=== PATIENT | female | born 1945 | race African-American/Black ===

== ENCOUNTER → 2019-06-13 | Outpatient (CLI) | payer MEDICARE, OTHER ==
[2019-06-13 15:19] LABS: HEMATOCRIT 52 % (35-52); MEAN CORPUSCULAR HEMOGLOBIN 32 PG (25-34); MEAN CORPUSCULAR VOLUME 99 FL (80-99); WHITE BLOOD COUNT 7.9 10^3/uL (4.3-11.0)
[2019-06-13 15:20] LABS: BASOPHILS # (AUTO) 0.1 10^3/uL (0.0-0.1); BASOPHILS % (AUTO) 1 % (0-10); EOSINOPHILS # (AUTO) 0.2 10^3/uL (0.0-0.3); EOSINOPHILS % (AUTO) 2 % (0-10); LYMPHOCYTES # (AUTO) 1.9 X 10^3 (1.0-4.0); LYMPHOCYTES % (AUTO) 25 % (12-44); MEAN CORPUSCULAR HGB CONC 33 G/DL (32-36); MEAN PLATELET VOLUME 9.2 FL (7.4-10.4); MONOCYTES # (AUTO) 0.6 X 10^3 (0.0-1.0); MONOCYTES % (AUTO) 7 % (0-12); NEUTROPHILS # (AUTO) 5.2 X 10^3 (1.8-7.8); NEUTROPHILS % (AUTO) 66 % (42-75); PLATELET COUNT 319 10^3/uL (130-400); RED CELL DISTRIBUTION WIDTH 12.9 % (10.0-14.5)
[2019-06-13 15:59] LABS: BILIRUBIN,TOTAL 0.5 MG/DL (0.1-1.0); BUN/CREATININE RATIO 26; CARBON DIOXIDE 26 MMOL/L (21-32); CHLORIDE 97 MMOL/L (98-107); CREATININE SERUM 0.72 MG/DL (0.60-1.30); GFR ESTIMATED > 60; GLUCOSE 112 MG/DL (70-105); POTASSIUM 4.5 MMOL/L (3.6-5.0); SODIUM 136 MMOL/L (135-145)
[2019-06-13 16:00] LABS: ALANINE AMINOTRANSFERASE 10 U/L (0-55); ALBUMIN 4.4 GM/DL (3.2-4.5); ALKALINE PHOSPHATASE 101 U/L (40-136); AMYLASE 54 U/L (25-125); LIPASE 25 U/L (8-78); TOTAL PROTEIN 7.4 GM/DL (6.4-8.2)
== END ==
LOC: LAB FS 14:56
PROVIDERS: ATTEND Nurse Practitioner Family
DX: R10.84 Generalized abdominal pain (principal)
CPT/HCPCS: 36415; 80053; 82150; 83690; 85025

== ENCOUNTER → 2020-12-02 | Outpatient (CLI) | payer MEDICARE, OTHER ==
[~2020-12-02] MED LIST: CATHETER FLUSH 10 ML SYR IV PRN; HOLD METFORMIN - RECEIVED CONTRAST 20 ML VIAL IV SCH; IOHEXOL 350 MG/ML 100 ML (OMNIPAQUE 350) VIAL IV ONE; NS 100 ML (IVPB) BAG IV ONE
[2020-12-02 13:56] LABS: ALANINE AMINOTRANSFERASE 10 U/L (0-55); ALBUMIN 4.2 GM/DL (3.2-4.5); ALKALINE PHOSPHATASE 123 U/L (40-136); BILIRUBIN,TOTAL 0.3 MG/DL (0.1-1.0); BUN/CREATININE RATIO 21; CALCIUM 9.5 MG/DL (8.5-10.1); CARBON DIOXIDE 22 MMOL/L (21-32); CHLORIDE 104 MMOL/L (98-107); GFR ESTIMATED > 60; GLUCOSE 124 MG/DL (70-105); POTASSIUM 3.8 MMOL/L (3.6-5.0); SODIUM 138 MMOL/L (135-145); TOTAL PROTEIN 7.2 GM/DL (6.4-8.2)
--- NOTE | 2020-12-02 15:14 | Diagnostic Imaging Report ---
PROCEDURE: CT abdomen and pelvis without contrast. TECHNIQUE: Multiple contiguous axial images were obtained through the abdomen and pelvis without the use of intravenous contrast. Auto Exposure Controls were utilized during the CT exam to meet ALARA standards for radiation dose reduction. INDICATION: Intermittent abdominal pain. There are no prior studies available for comparison. This study is less than optimal due to motion and streak artifact. The liver does not appear to be enlarged and there is no focal mass involving the liver. The biliary tree does not appear to be abnormally distended either. The gallbladder is surgically absent. The spleen, pancreas, adrenals, kidneys, aorta and inferior vena cava show no sign of an acute abnormality. The stomach is not well-distended and consequently difficult to assess. The appendix is not well-visualized but there are no indirect signs of acute appendicitis. There is diverticulosis of the sigmoid and descending colon but there is no sign of acute diverticulitis. There is no pelvic mass or free fluid collection noted. The uterus is surgically absent. The urinary bladder is grossly unremarkable. There is a femoral-femoral bypass graft. The graft seems to be in good position but whether the graft is patent is not certain. If further study is desired, either a follow-up CT abdomen/pelvis exam with intravenous contrast or ultrasound would be recommended. The lung bases are generally clear. The bone windows show no sign of a fracture or of a destructive lesion. IMPRESSION: 1. There is no acute abnormality of the abdomen or pelvis identified on this suboptimal exam. 2. There is diverticulosis of the sigmoid and descending colon but there is no sign of acute diverticulitis. 3. The gallbladder and uterus are surgically absent. 4. There is a femoral-femoral bypass graft in place. Additional considerations as above. Dictated by: Dictated on workstation # [id number]
== END ==
LOC: RAD FS 13:12
PROVIDERS: ATTEND Surgery
DX: K57.30 Diverticulosis of large intestine without perforation or abscess without bleeding (principal); Z90.49 Acquired absence of other specified parts of digestive tract; Z90.710 Acquired absence of both cervix and uterus; Z95.828 Presence of other vascular implants and grafts
CPT/HCPCS: 36415; 74176; 80053

== ENCOUNTER → 2023-02-01 | Outpatient (CLI) | payer MEDICARE, OTHER ==
[~2023-02-01] VITALS: Ht 160 cm; Wt 56.4 kg
[~2023-02-01] MED LIST changes: +ALPR0.5T7 PO; +AMLO-250 PO; +ATOR10TA66 PO; -CATHETER FLUSH 10 ML SYR IV PRN; +DICY10CA12 PO; +ESTR1TAB24 PO; -HOLD METFORMIN - RECEIVED CONTRAST 20 ML VIAL IV SCH; -IOHEXOL 350 MG/ML 100 ML (OMNIPAQUE 350) VIAL IV ONE; -NS 100 ML (IVPB) BAG IV ONE; +OMEP40CA6 PO; +RIVA20TA PO; +RT-ALBUINH INH
== END | disposition home or self-care (01) ==
LOC: PREOP 13:01
PROVIDERS: ATTEND Surgery
DX: Z01.818 Encounter for other preprocedural examination (principal); R10.13 Epigastric pain; Z87.19 Personal history of other diseases of the digestive system

== ENCOUNTER 2023-02-07 11:03 | Day surgery (SDC) | payer MEDICARE, OTHER ==
[~2023-02-07] VITALS: Ht 160 cm; Wt 56.4 kg
[~2023-02-07 11:03] MED LIST changes: -OMEP40CA6 PO
--- NOTE | 2023-02-07 11:20 | Progress Note-Pre Operative ---
Pre-Operative Progress Note Date of Available H&P: Feb 07, 2023 Date H&P Reviewed: Feb 07, 2023 Time H&P Reviewed: 11:15 History & Physical: No changes noted Pre-Operative Diagnosis: GERD, hx diverticulitis GURU INGRAM MD Feb 07, 2023 11:20
[2023-02-07] MEDS ORDERED: OMEP40CA6 PO (11:21)
--- NOTE | 2023-02-07 11:22 | Discharge Inst-Surgical ---
D/C Lap Instructions-KIDO New, Converted, or Re-Newed RX: RX on Chart Follow Up Activity as tolerated High Fiber Diet 25g or more per day Avoid Alcohol, Caffeine, Spicy [place] and Acid foods. Drink 64 fluid oz or more of fluids per day. Symptoms to Report: Fever over 101 degree F, Nausea/Vomiting If any problems/questions: Contact your physician or go to Emergency Room GURU INGRAM MD Feb 07, 2023 11:22
[2023-02-07] MEDS ORDERED: LACTATED RINGERS 1,000 ML IV STA (11:23)
[2023-02-07] MEDS ORDERED: LIDOCAINE JELLY 2% 6 ML SYRINGE MM PRN (11:30)
[2023-02-07] MEDS ORDERED: ONDANSETRON 4 MG/2 ML (SDV) Z0FRAN IVP PRN (11:30)
[2023-02-07] MEDS ORDERED: ONDANSETRON 4 MG (ZOFRAN) ORAL DISSOLVE TAB PO PRN (11:30)
[2023-02-07] MEDS ORDERED: HURRICAINE EXT TUBE (BENZOCAINE) XX PRN (11:30)
[2023-02-07 11:54] VITALS: BP 147/78
[2023-02-07] MEDS ORDERED: LIDOCAINE JELLY 2% 6 ML SYRINGE ONE (12:04)
[2023-02-07] MEDS ORDERED: PROPOFOL INJECTION 0 ML IV ONE (12:06)
[2023-02-07] MEDS ORDERED: PROPOFOL INJECTION 50 ML IV ONE (12:34)
[2023-02-07 12:55] VITALS: BP 84/51
[2023-02-07 13:00] VITALS: BP 93/53
--- NOTE | 2023-02-07 13:01 | Anesthesia-General Post-Op ---
MAC Patient Condition Mental Status/LOC: Same as Preop Cardiovascular: Satisfactory Nausea/Vomiting: Absent Respiratory: Satisfactory Pain: Controlled Complications: Absent Post Op Complications Complications None Follow Up Care/Instructions Patient Instructions None needed. Anesthesiology Discharge Order Discharge Order Patient is doing well, no complaints, stable vital signs, no apparent adverse anesthesia problems. No complications reported per nursing. DANIEL GRIFFIN CRNA Feb 07, 2023 13:01
[2023-02-07 13:05] VITALS: BP 116/62
[2023-02-07 13:50] VITALS: BP 153/87
--- NOTE | 2023-02-07 14:06 | Progress Note-Post Operative ---
Post-Operative Progess Note Surgeon (s)/Director Of Mobile Marketing (s) Surgeon GURU INGRAM MD Director Of Mobile Marketing: none Pre-Operative Diagnosis GERD, hx diverticulitis Post-Operative Diagnosis reflux esophagitis(grade B), small HH(1.5cm), moderate gastritis. chronic stage 2 ext and int hemorrhoids, mild sigmoid diverticulosis, mild sigmoid colitis. Procedure & Operative Findings Date of Procedure 02/07/23 Procedure Performed/Findings EGD with bx. Colonoscopy. Anesthesia Type mac Estimated Blood Loss Estimated blood loss (mL): minimal Specimens/Packing Specimens Removed ge jxn, antrum GURU INGRAM MD Feb 07, 2023 14:06
--- NOTE | 2023-02-07 20:16 | OPERATIVE REPORT ---
DATE OF SERVICE: 02/07/2023 ATTENDING LEAD MEDICAL TECHNOLOGIST: Ximena Morrison APRN. PREOPERATIVE DIAGNOSES: Gastroesophageal reflux disease, recurrent left lower abdominal quadrant pain. POSTOPERATIVE DIAGNOSES: Reflux esophagitis, [place] grade B, small hiatal hernia, 1.5 cm in size, moderate gastritis, no distal obstructions. Chronic stage II external and internal hemorrhoids, mild sigmoid diverticulosis, mild sigmoid colitis. PROCEDURE: EGD with biopsy, colonoscopy. SURGEON: Guru Ingram MD ANESTHESIA: Monitored anesthesia care. ESTIMATED BLOOD LOSS: Minimal. FINDINGS: Reflux esophagitis, [place] grade B, small hiatal hernia, 1.5 cm in size, moderate gastritis, no distal obstructions. Chronic stage II external and internal hemorrhoids, mild sigmoid diverticulosis, mild sigmoid colitis. DISPOSITION: The patient tolerated the procedure well. INDICATIONS: The patient is a 77-year-old female referred over to us for issues with epigastric burning sensation and signs and symptoms related to gastroesophageal reflux disease. She also has had issues with recurrent left lower quadrant abdominal pain for the past several months. She states that she was placed on oral antibiotics on 2 separate occasions, which did not help. She does report that she has had some loose mucousy stools as well. She did have a colonoscopy in 2018, however, does not recall any abnormalities. A CT scan was performed approximately 2 years ago, which did show sigmoid diverticulosis. DESCRIPTION OF PROCEDURE: The patient was brought to the endoscopy suite and laid in the left lateral decubitus position. After adequate IV pain and sedative medications and monitored anesthesia care, the mouthpiece was applied. The endoscope was placed in the mouth, visualizing the pharynx and hypopharyngeal region. Vocal cords, epiglottis and vallecula identified and appeared to be normal. The endoscope was then gently intubated into the esophageal opening and esophagus insufflated. The endoscope was then advanced into the first, second and third portion of the esophagus at the level of the GE junction, a reflux esophagitis, [place] grade B identified. No ulcers or strictures identified in this region. The endoscope was then advanced into the stomach and the endoscope retroflexed, visualizing a small hiatal hernia approximately 1.5 cm in size. There was a moderate severity gastritis. A biopsy was taken of the antrum to rule out H. pylori with visualization of good hemostasis. The endoscope was then advanced through the pylorus into the first and second portion of the duodenum, which appeared normal with no distal obstructions. The endoscope was then slowly withdrawn while taking a second look and suctioning of residual air with no additional findings. A digital rectal examination was performed which revealed chronic stage II external and internal hemorrhoids. Normal sphincter tone was felt and there were no palpable masses. The endoscope was then intubated into the anus and the rectum gently insufflated. The endoscope was then advanced through the valves of [place] of the rectum, which appeared normal. Through the sigmoid colon, there was a mild sigmoid diverticulosis; however, there was no purulence or inflammation within the diverticulum to indicate any recent diverticulitis. There was a mild mucosal inflammatory change around the sigmoid colon, which was more likely consistent with a low-grade colitis. The endoscope was then advanced through the remainder of the descending, transverse and ascending colon to the cecum, which were normal. There were no polyps or any neoplasms identified. The endoscope was then slowly withdrawn while taking a second look and suctioning of residual air with no additional findings. The patient tolerated the procedure well. We will have her proceed with the necessary lifestyle and dietary accommodation including smoking cessation as well as avoidance of caffeinated beverages, spicy, greasy and acidic foods and take in small and more frequent meals and avoidance of eating at night. We will also start her on omeprazole 40 mg daily. We will also proceed with starting her on a trial 5-aminosalicylic acid 800 mg t.i.d. for the next 6 weeks to see if her symptoms resolve. If her symptoms do not resolve, we will then refer her to Gastroenterology. Job ID: [id number] DocumentID: [id number] Dictated Date: 02/07/2023 12:58:36 Freight And Passenger Agent Date: 02/07/2023 20:14:00 Dictated By: GURU INGRAM MD [facility] HEALTH PARTNERSChristopher
== END 2023-02-07 13:50 | disposition home or self-care (01) ==
LOC: ENDO 11:03
PROVIDERS: ATTEND Surgery
DX: K21.00 Gastro-esophageal reflux disease with esophagitis, without bleeding (principal); K44.9 Diaphragmatic hernia without obstruction or gangrene; K64.1 Second degree hemorrhoids; K64.4 Residual hemorrhoidal skin tags; K29.70 Gastritis, unspecified, without bleeding; K57.30 Diverticulosis of large intestine without perforation or abscess without bleeding; K52.9 Noninfective gastroenteritis and colitis, unspecified; F17.210 Nicotine dependence, cigarettes, uncomplicated

== ENCOUNTER 2023-07-04 11:43 | Emergency (ER) | payer MEDICARE, OTHER ==
[~2023-07-04] VITALS: Ht 157 cm; Wt 56.4 kg
[~2023-07-04 11:43] MED LIST changes: +DICY-11 PO; -DICY10CA12 PO; +OMEP40CA6 PO
--- NOTE | 2023-07-04 13:22 | ED Abdominal Pain ---
General Chief Complaint: Abdominal/GI Problems Stated Complaint: RECTAL PAIN | ABD PAIN Nursing Triage Note: HAS A HX OF GASTRIC PROBLEMS FOR 2 MONTHS HAS BEEN INSTRUCTED TO SEE A GASTROENTEROLIGIST, HOWEVER LAST 2 DAYS HAVE BEEN MUCH WORSE AND SHE CAN NO LONGER TOLERATE THE PAIN AT HOME AND NOW HAVING PAIN IN HER RECTUM. Source of Information: Patient Exam Limitations: No Limitations (REMINGTON KELLER) History of Present Illness Date Seen by Provider: Jul 04, 2023 Time Seen by Provider: 13:20 Initial Comments Patient is a 77-year-old female with a history of chronic abdominal pain who presents the ED for upper abdominal pain and rectal pain for the past 2 days. Pain is described as burning dull and fairly constant with episodes of increased intensity. She states she feels a bulge around her rectum. She denies of any obvious prolapse or mass that is palpable on exam. She reports burning sensation chest radiate to the back. Denies any nausea vomiting. Last bowel movement 2 days ago. She typically has a bowel movement every 2 or 3 days. She denies any chest pain or shortness of breath. She does follow Dr. Amato for her symptoms. She does take hydrocodone as needed. She states she had a upper EGD and colonoscopy which noted gastritis this past February. She is scheduled follow- up with GI at [facility] on the . Patient denies fever, chills, body aches, headache, dizziness. Pain is not worse with eating. Denies any dark tarry stools. She does report some pressure around her suprapubic region. (REMINGTON KELLER) Allergies and Home Medications Allergies Coded Allergies: cephalexin (Unverified Allergy, Severe, Hives, 02/01/23) Patient Home Medication List Home Medication List Reviewed: Yes (REMINGTON KELLER) Albuterol Sulfate (Ventolin Hfa) 1 Puff Puff, 1 PUFF INH Q4H PRN for SHORTNESS O F BREATH, (Reported) Entered as Reported by: Payton Morrison on 02/01/23 1324 Alprazolam (Alprazolam) 0.5 Mg Tablet, 0.5 MG PO HS, (Reported) Entered as Reported by: Payton Morrison on 02/01/23 1324 Amlodipine Besylate (Amlodipine Besylate) 5 Mg Tablet, 5 MG PO DAILY, (Reported) Entered as Reported by: Payton Morrison on 02/01/23 1324 Atorvastatin Calcium (Atorvastatin Calcium) 10 Mg Tablet, 10 MG PO HS, (Reported) Entered as Reported by: Payton Morrison on 02/01/23 1324 Dicyclomine HCl (Dicyclomine HCl) 10 Mg Capsule, 10 MG PO DAILY PRN for BACK PAIN, (Reported) Entered as Reported by: Payton Morrison on 02/01/23 1324 Estradiol (Estradiol Tablet) 1 Mg Tablet, 1 MG PO DAILY, (Reported) Entered as Reported by: Payton Morrison on 02/01/23 1324 Omeprazole (Omeprazole) 40 Mg Capsule.dr, 40 MG PO DAILY Prescribed by: GURU AMATO on 02/07/23 1121 Rivaroxaban (Xarelto) 20 Mg Tablet, 20 MG PO DAILY, (Reported) Entered as Reported by: Payton Morrison on 02/01/23 1324 Review of Systems Review of Systems Constitutional: No chills, No diaphoresis, No malaise, No weakness EENTM: No Eye Pain Respiratory: Denies Cough, Denies Orthopnea Gastrointestinal: Abdominal Pain; Denies Diarrhea, Denies Nausea, Denies Rectal Bleeding, Denies Vomiting Genitourinary: Denies Burning, Denies Discharge; Pain Musculoskeletal: No back pain, No joint pain Skin: No change in color, No change in hair/nails (REMINGTON KELLER) All Other Systems Reviewed Negative Unless Noted: Yes (REMINGTON KELLER) Past Ldtevqh-Jncwgm-Cdfnjq Hx Patient Social History Tobacco Use?: Yes Tobacco type used: Cigarettes Use of E-Cig and/or Vaping dev: No Substance use?: No Alcohol Use?: No Pt feels they are or have been: No (REMINGTON KELLER) Immunizations Up To Date Influenza Vaccine Up-to-Date: Yes; Up-to-Date First/Initial COVID19 Vaccinat: 2 SHOTS Second COVID19 Vaccination Aj: 10/2021 Third COVID19 Vaccination Date: 10/2021 (REMINGTON KELLER) Seasonal Allergies Seasonal Allergies: Yes (REMINGTON KELLER) Past Medical History Surgery/Hospitalization HX: HTN, BYPASS SURG, BLOOD CLOT IN LEFTLEG, HIGH CHOLESTEROL Surgeries: Yes Appendectomy, Cardiac, CABG, Gallbladder, Hysterectomy, Tonsillectomy Respiratory: No Currently Using CPAP: No Currently Using BIPAP: No Cardiac: Yes ( LEG 2017) Coronary Artery Disease, Deep Vein Thrombosis, Hypertension 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 Sexually Transmitted Disease: No HIV/AIDS: No Genitourinary: No Gastrointestinal: No Musculoskeletal: Yes (BACK ISSUES) Arthritis Endocrine: No HEENT: Yes Loss of Vision: Bilateral Hearing Impairment: Denies Cancer: No Psychosocial: Yes (TAKES XANAX FOR SLEEP/HTN, DENIES ANXIETY) Integumentary: No Blood Disorders: No Adverse Reaction/Blood Tranf: No (REMINGTON KELLER) Physical Exam Vital Signs Vital Signs - First Documented 07/04/23 12:20 Temp 36.9 Pulse 104 Resp 18 B/P (MAP) 152/91 (111) Pulse Ox 96 O2 Delivery Room Air (RYAN JONES MD) Vital Signs Capillary Refill : Less Than 3 Seconds (REMINGTON KELLER) Height/Weight/BMI Height: '" Weight: lbs. oz. kg; 22.00 BMI Method: General Appearance: WD/WN, no apparent distress HEENT: PERRL/EOMI, normal ENT inspection, TMs normal, pharynx normal Neck: non-tender, full range of motion, supple Respiratory: chest non-tender, lungs clear, normal breath sounds, no respiratory distress, no accessory muscle use Cardiovascular: regular rate, rhythm, no edema Gastrointestinal: normal bowel sounds, non tender, soft, no organomegaly, no pulsatile mass, tenderness (Suprapubic tenderness) Extremities: normal range of motion, non-tender, normal inspection, no pedal edema Back: normal inspection, no CVA tenderness, no vertebral tenderness 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, no motor/sensory deficits, alert, normal mood/affect, oriented x 3 Skin: normal color, warm/dry Lymphatic: no adenopathy (REMINGTON KELLER) Progress/Results/Core Measures Results/Orders Lab Results Laboratory Tests Test 07/04/23 13:18 11/29/23 15:09 Range/Units White Blood Count 7.5 4.3-11.0 10^3/uL Red Blood Count 5.26 H 3.80-5.11 10^6/uL Hemoglobin 16.0 11.5-16.0 g/dL Hematocrit 49 35-52 % Mean Corpuscular Volume 93 80-99 fL Mean Corpuscular Hemoglobin 30 25-34 pg Mean Corpuscular Hemoglobin Concent 33 32-36 g/dL Red Cell Distribution Width 15.1 H 10.0-14.5 % Platelet Count 389 130-400 10^3/uL Mean Platelet Volume 10.1 9.0-12.2 fL Immature Granulocyte % (Auto) 0 % Neutrophils (%) (Auto) 70 42-75 % Lymphocytes (%) (Auto) 21 12-44 % Monocytes (%) (Auto) 7 0-12 % Eosinophils (%) (Auto) 1 0-10 % Basophils (%) (Auto) 0 0-10 % Neutrophils # (Auto) 5.3 1.8-7.8 10^3/uL Lymphocytes # (Auto) 1.6 1.0-4.0 10^3/uL Monocytes # (Auto) 0.6 0.0-1.0 10^3/uL Eosinophils # (Auto) 0.1 0.0-0.3 10^3/uL Basophils # (Auto) 0.0 0.0-0.1 10^3/uL Immature Granulocyte # (Auto) 0.0 0.0-0.1 10^3/uL Sodium Level 139 135-145 MMOL/L Potassium Level 4.2 3.6-5.0 MMOL/L Chloride Level 105 98-107 MMOL/L Carbon Dioxide Level 21 21-32 MMOL/L Anion Gap 13 5-14 MMOL/L Blood Urea Nitrogen 11 7-18 MG/DL Creatinine 0.78 0.60-1.30 MG/DL Estimat Glomerular Filtration Rate 78 BUN/Creatinine Ratio 14 Glucose Level 117 H 70-105 MG/DL Calcium Level 9.9 8.5-10.1 MG/DL Corrected Calcium 9.6 8.5-10.1 MG/DL Total Bilirubin 0.5 0.1-1.0 MG/DL Aspartate Amino Transf (AST/SGOT) 18 5-34 U/L Alanine Aminotransferase (ALT/SGPT) 13 0-55 U/L Alkaline Phosphatase 112 40-136 U/L Total Protein 7.9 6.4-8.2 GM/DL Albumin 4.4 3.2-4.5 GM/DL Lipase 9 8-78 U/L Urine Color YELLOW Urine Clarity CLEAR Urine pH 7.0 5-9 Urine Specific [place] 1.025 H 1.016-1.022 Urine Protein NEGATIVE NEGATIVE Urine Glucose (UA) NEGATIVE NEGATIVE Urine Ketones NEGATIVE NEGATIVE Urine Nitrite NEGATIVE NEGATIVE Urine Bilirubin NEGATIVE NEGATIVE Urine Urobilinogen 0.2 < = 1.0 MG/DL Urine Leukocyte Esterase NEGATIVE NEGATIVE Urine RBC (Auto) TRACE H NEGATIVE Urine RBC 0-2 /HPF Urine WBC NONE /HPF Urine Squamous Epithelial Cells NONE /HPF Urine Crystals NONE /LPF Urine Bacteria NEGATIVE /HPF Urine Casts NONE /LPF Urine Mucus NEGATIVE /LPF Urine Culture Indicated NO (RYAN JONES MD) Vital Signs/I&O 07/04/23 07/04/23 12:20 15:48 Temp 36.9 Pulse 104 97 Resp 18 18 B/P (MAP) 152/91 (111) 131/81 Pulse Ox 96 96 O2 Delivery Room Air Room Air (RYAN JONES MD) Blood Pressure Mean: 111 Departure Communication (PCP) Reviewed previous ER visits, H&P, lab testing. Had a colonoscopy end of January from Dr. Amato which showed reflux esophagitis, small hiatal hernia, moderate gastritis, sigmoid diverticulosis, mild sigmoid colitis, internal hemorrhoids. No mass. She has been experiencing abdominal pain for several years. This pain became worse over the past 2 days. She feels like there is a ball near her rectum. Last bowel movement she believes was Sunday. No vomiting. Burning sensation up in her upper abdomen. No worsening pain with eating. She reports decreased urine output today and discomfort. Vital signs stable. Denies any bloody or mucousy stools. Schedule follow-up with GI at [facility] on the . Concern for inflammatory bowel disease CBC, CMP, lipase urinalysis was ordered. She was not able to urinate. Bladder scan did note around 400 mL of urine. CBC, CMP was grossly unremarkable. Difficult IV stick. Did obtain a CT abdomen pelvis which noted large stool ball in the rectum with rectal wall thickening and surrounding stranding suggesting of stercoral proctitis. Rectal exam did noted a soft ball of stool. I was not able to remove much stool. Due to the findings I did consult with Dr. Amato general surgery. My concern due to the large stool that this may result in complications such as ulcer, perforation, necrosis of the bowel. At this time Dr. Amato recommended laxatives. Did not recommend admission at this time. If no bowel movement with laxative regimen then needs to follow-up in the office and he will schedule patient to go to the OR for disimpaction. If any worsening pain fever vomiting to return back to ED. Recommend drinking plenty of fluids. She agrees with this plan of action. Did obtain a straight cath which did not note any infection. My concern is the large stool is compromising urination. General surgery recommended outpatient laxatives. If not able to urinate need to return back to ED. (REMINGTON KELLER) Impression Primary Impression: Constipation Additional Impression: Stercoral colitis Disposition: HOME, SELF-CARE Condition: Stable Departure-Patient Inst. Decision time for Depature: 15:25 (REMINGTON KELLER) Referrals: GURU AMATO MD, AMANDA S APRN (PCP) Primary Care Physician Patient Instructions: Constipation, Adult ED Add. Discharge Instructions: Recommend drinking a full bottle of magnesium citrate over 24 hours. If no improvement recommend Fleet enema daily. MiraLAX daily. Make given drink plenty fluids. If no bowel movement the next few days follow-up with Dr. Amato. If any worsening pain fever vomiting return back to ED. All discharge instructions reviewed with patient and/or family. Voiced understanding. ATTENDING PHYSICIAN NOTE: I was physically present as attending physician in the emergency department during the care of this patient, but I was not directly involved in the decision making or delivery of care for this patient. (RYAN JONES MD) REMINGTON KELLER Jul 04, 2023 13:22 RYAN JONES MD Jul 04, 2023 19:06
[2023-07-04 13:37] LABS: ALBUMIN 4.4 GM/DL (3.2-4.5); POTASSIUM 4.2 MMOL/L (3.6-5.0)
[2023-07-04 13:38] LABS: BASOPHILS % (AUTO) 0 % (0-10); CALCIUM 9.9 MG/DL (8.5-10.1); EOSINOPHILS # (AUTO) 0.1 10^3/uL (0.0-0.3); EOSINOPHILS % (AUTO) 1 % (0-10); HEMATOCRIT 49 % (35-52); LYMPHOCYTES # (AUTO) 1.6 10^3/uL (1.0-4.0); LYMPHOCYTES % (AUTO) 21 % (12-44); MEAN CORPUSCULAR HEMOGLOBIN 30 pg (25-34); MEAN CORPUSCULAR HGB CONC 33 g/dL (32-36); MEAN CORPUSCULAR VOLUME 93 fL (80-99); MEAN PLATELET VOLUME 10.1 fL (9.0-12.2); MONOCYTES # (AUTO) 0.6 10^3/uL (0.0-1.0); MONOCYTES % (AUTO) 7 % (0-12); NEUTROPHILS # (AUTO) 5.3 10^3/uL (1.8-7.8); NEUTROPHILS % (AUTO) 70 % (42-75); PLATELET COUNT 389 10^3/uL (130-400); WHITE BLOOD COUNT 7.5 10^3/uL (4.3-11.0)
[2023-07-04 13:39] LABS: TOTAL PROTEIN 7.9 GM/DL (6.4-8.2)
[2023-07-04 13:41] LABS: BILIRUBIN,TOTAL 0.5 MG/DL (0.1-1.0)
[2023-07-04 13:43] LABS: CREATININE SERUM 0.78 MG/DL (0.60-1.30)
--- NOTE | 2023-07-04 14:12 | Diagnostic Imaging Report ---
EXAMINATION: CT abdomen and pelvis without contrast. TECHNIQUE: Multiple contiguous axial images were obtained through the abdomen and pelvis without the use of intravenous contrast. All CT scans use one or more of the following dose optimizing techniques: automated exposure control, MA and/or KvP adjustment based on patient size and exam type or iterative reconstruction. HISTORY: Abdominal pain COMPARISON: 12/02/2020 FINDINGS: Limited views of the lower thorax show emphysema and an unchanged 3 mm right lower lobe nodule. There are a few cysts in the liver. There is focal fat at the falciform ligament. Gallbladder is absent. There is no biliary ductal dilation. Pancreas is normal. Spleen is normal. Adrenal glands are normal. The kidneys are normal. There is no hydronephrosis. Urinary bladder is normal. There is a large stool ball in the rectum. There is rectal wall thickening and surrounding stranding concerning for stercoral proctitis. There is diverticulosis without diverticulitis. No evidence for obstruction. There is a femoral-femoral bypass graft. No free fluid or air. No abdominal or pelvic lymphadenopathy. Aorta is normal in caliber without aneurysm. There are no suspicious osseus lesions. There are disc bulges in the lumbar spine resulting in wnee-qm-ikltadom spinal canal stenosis. IMPRESSION: 1. Large stool ball in the rectum with rectal wall thickening and surrounding stranding suggestive of stercoral proctitis. Dictated by: Dictated on workstation # [id number]
[2023-07-04 15:39] LABS: BACTERIA,URINE NEGATIVE /HPF; BILIRUBIN,URINE NEGATIVE (NEGATIVE); CLARITY,URINE CLEAR; COLOR,URINE YELLOW; GLUCOSE, URINE (UA) NEGATIVE (NEGATIVE); KETONES,URINE NEGATIVE (NEGATIVE); LEUKOCYTE ESTERASE ,URINE NEGATIVE (NEGATIVE); NITRITE,URINE NEGATIVE (NEGATIVE); PROTEIN,URINE NEGATIVE (NEGATIVE); RBC,URINE 0-2 /HPF
[2023-07-04 15:48] VITALS: BP 131/81
== END 2023-07-04 15:48 | disposition home or self-care (01) ==
LOC: EDUNIT# 11:43 → ER 11:45
DX: K59.00 Constipation, unspecified (principal); K52.9 Noninfective gastroenteritis and colitis, unspecified; F17.210 Nicotine dependence, cigarettes, uncomplicated; Z90.49 Acquired absence of other specified parts of digestive tract
CPT/HCPCS: 36415; 51701; 74176; 80053; 81000; 83690; 85025